=== PATIENT | female | born 1945 | race Caucasian/White ===

== ENCOUNTER 2025-01-27 06:25 | Inpatient (IN) ==
--- NOTE | 2025-01-11 14:36 | PAT Medication Instructions ---
Medication Instructions Date of Service January 11, 2025 Home Medications acetaminophen 500 mg tablet 1,000 mg PO HS PRN prn buspirone 5 mg tablet 5 mg PO BID calcium 600 mg (as carbonate)-vitamin D3 5 mcg (200 unit) tablet 2 tab PO QAM cholecalciferol (vitamin D3) 125 mcg (5,000 unit) tablet (Vitamin D3) 125 mcg PO QAM cyanocobalamin (vitamin B-12) 1,000 mcg tablet (Vitamin B-12) 1,000 mcg PO QAM ezetimibe 10 mg tablet (Zetia) 10 mg PO QAM fluticasone propionate 50 mcg/actuation nasal spray,suspension 2 spray intranasal DAILY PRN prn latanoprost (PF) 0.005 % eye drops 1 drp ophthalmic (eye) PM lisinopril 20 mg tablet 20 mg PO QAM metoprolol succinate 50 mg tablet,extended release 24 hr 50 mg PO QAM dnbkyyvngims-zhifqrfo-ceowojo-folic acid 400 mcg-vit K1 20 mcg tablet (Women's 50 Plus Advanced) 1 tab PO QAM paroxetine HCl 40 mg tablet 40 mg PO QAM polyethylene glycol 3350 17 gram/dose oral powder (Miralax) 17 g PO 2XWK PRN prn DO NOT take the morning of surgery calcium 600 mg (as carbonate)-vitamin D3 5 mcg (200 unit) tablet 2 tab PO QAM cholecalciferol (vitamin D3) 125 mcg (5,000 unit) tablet (Vitamin D3) 125 mcg PO QAM cyanocobalamin (vitamin B-12) 1,000 mcg tablet (Vitamin B-12) 1,000 mcg PO QAM lisinopril 20 mg tablet 20 mg PO QAM eryuzmdacplf-elyswoas-oqnwmhh-folic acid 400 mcg-vit K1 20 mcg tablet (Women's 50 Plus Advanced) 1 tab PO QAM polyethylene glycol 3350 17 gram/dose oral powder (Miralax) 17 g PO 2XWK PRN prn Take morning of surgery With a small sip of water, OTHERWISE NOTHING TO EAT OR DRINK AFTER MIDNIGHT: buspirone 5 mg tablet 5 mg PO BID ezetimibe 10 mg tablet (Zetia) 10 mg PO QAM fluticasone propionate 50 mcg/actuation nasal spray,suspension 2 spray intranasal DAILY PRN prn (if needed) metoprolol succinate 50 mg tablet,extended release 24 hr 50 mg PO QAM paroxetine HCl 40 mg tablet 40 mg PO QAM Take evening before surgery acetaminophen 500 mg tablet 1,000 mg PO HS PRN prn .ig buspirone 5 mg tablet 5 mg PO BID fluticasone propionate 50 mcg/actuation nasal spray,suspension 2 spray intranasal DAILY PRN prn (if needed) latanoprost (PF) 0.005 % eye drops 1 drp ophthalmic (eye) PM polyethylene glycol 3350 17 gram/dose oral powder (Miralax) 17 g PO 2XWK PRN prn (if needed) Other Notes If you have any questions please call us at [phone] or [phone] or [phone] or [phone]
--- NOTE | 2025-01-14 12:23 | Anesthesiology Consultation ---
Date of Service January 14, 2025 Assessment & Plan (1) Encounter for pre-operative examination: - awaiting surgeon ordered 01/18/25 medical clearance, Dr. Andre Allen [facility] [address]. Chart Review Chart Review: Pending: Refer to Additional Notes / Consult section and Patient seen in Pre Admission Testing Teaching & Discussion Pre-Anesthesia Teaching/Discussion Notes: Instructed NPO after midnight before surgery, except medications with 15 cc of water. Medication instructions provided according to the PAT guidelines. History Surgery Operation Date: 01/27/25 07:45 Proposed Procedures p T12-L2 Decompression and Fusion, Possible Hardware Removal, Spinal Cord Monitoring - Chivo Roberts, Height/Weight Height: 5 ft 3 in Weight: 84.8 kg Allergies Allergy/AdvReac Type Severity Reaction Status Date / Time Iwfrqnq-JAG-BsR Reductase Allergy Unknown myalgias Verified 01/14/25 12:19 Inhibitor [Mfpzvrg-Oob-Yhr Reductase Inhibitor] lorazepam AdvReac Mild "spacey" Verified 01/14/25 12:19 Unclassified Drugs Allergy Unknown 'BRIAN Uncoded 01/14/25 12:19 DRUG WITH DENTAL WORK-HYPOTENSION,FLUSHED, NAUSEA Medications Home Medications Medication Instructions Recorded Confirmed Last Taken acetaminophen 500 mg tablet 1,000 mg PO HS PRN prn 01/07/25 01/07/25 Unknown buspirone 5 mg tablet 5 mg PO BID 01/07/25 01/07/25 Unknown calcium 600 mg (as 2 tab PO QAM 01/07/25 01/07/25 Unknown carbonate)-vitamin D3 5 mcg (200 unit) tablet cholecalciferol (vitamin D3) 125 125 mcg PO QAM 01/07/25 01/07/25 Unknown mcg (5,000 unit) tablet (Vitamin D3) cyanocobalamin (vitamin B-12) 1,000 mcg PO QAM 01/07/25 01/07/25 Unknown 1,000 mcg tablet (Vitamin B-12) ezetimibe 10 mg tablet (Zetia) 10 mg PO QAM 01/07/25 01/07/25 Unknown fluticasone propionate 50 2 spray intranasal DAILY PRN prn 01/07/25 01/07/25 Unknown mcg/actuation nasal spray,suspension latanoprost (PF) 0.005 % eye drops 1 drp ophthalmic (eye) PM 01/07/25 01/07/25 Unknown lisinopril 20 mg tablet 20 mg PO QAM 01/07/25 01/07/25 Unknown metoprolol succinate 50 mg 50 mg PO QAM 01/07/25 01/07/25 Unknown tablet,extended release 24 hr cmdanrcafapd-swinjfxl-ytunmrk-folic 1 tab PO QAM 01/07/25 01/07/25 Unknown acid 400 mcg-vit K1 20 mcg tablet (Women's 50 Plus Advanced) paroxetine HCl 40 mg tablet 40 mg PO QAM 01/07/25 01/07/25 Unknown polyethylene glycol 3350 17 17 g PO 2XWK PRN prn 01/07/25 01/07/25 Unknown gram/dose oral powder (Miralax) Past Medical History Medical History (Updated 01/14/25 @ 12:35 by Елена Galarza PA-C) Anxiety Chronic kidney disease, stage 2 (mild) Depression Eye problem left eye-blurry vision-is to see Dr Calderon at [facility] History of anesthesia reaction difficulty waking as a teenager with tonsillectomy, no issues since Hyperlipidemia Hypertension controlled, stable per pt Migraine Osteoarthritis Patient denies h/o stroke, seizures, heart attack, heart failure, DM, blood clots/DVTs or blood transfusions. Exercise / Class Metabolic Activity II 4-5 Yardwork/Stairs/Walk up hill (ambulates with cane, denies chest d iscomfort or shortness of breath with one flight of stairs) Past Surgical History Surgical History History of adenoidectomy History of cataract surgery bilateral History of foot surgery left foot fracture, hardware present History of lumbar surgery History of partial hysterectomy History of tonsillectomy Past Anesthesia History No Family Hx of Anesthesia Complications and Other (slow to wake) History of PONV No Hx of PONV and No Hx of Motion Sickness Social History Smoking Status: Never smoker Do You Dip or Chew Tobacco: No Hx Alcohol Use: Yes Alcohol type: wine alcohol intake frequency: holidays/special occasions only Hx Substance Use: No substance use type: does not use Review of Systems Patient denies chest pain, shortness of breath, dyspnea on exertion, snoring, witnessed apneas, reflux, fever, chills, cough, wheezing, or palpitations. Physical Exam Vital Signs Vitals BP 135/81 P 68 TEMP 98.2 SP02 96% on RA RESP 19 Physical Patient resting comfortably in chair in no acute distress, alert and oriented, responding appropriately throughout visit Full cervical extension range of motion without pain TMD 3.5 finger breadths Mallampati Score 2 Dentition: several crowns and permanent partial front upper tooth; denies chipped or loose teeth, or bridges Lungs: normal respiratory effort. Good air movement, clear throughout to auscultation, no adventitious breath sounds Cardiac: regular rate and rhythm, no murmurs noted Carotid arteries: negative bruit bilat Testing Laboratory Results 01/08/25 WBC: 5.6 H/H: 13/38 PLATELETS: 213,000 SODIUM: 136 POTASSIUM: 4.5 CHLORIDE: 104 CO2: 29 BUN: 17 CREATININE: 0.8 GLUCOSE: 92 PT: 11.2 PTT: 35 INR: 0.9 UA: trace leukocyte esterase Electrocardiogram Date: 01/08/25 Sinus bradycardia, rate 59 bpm Chest X-Ray Date: 01/12/25 Ribs with PA chest left No evidence of acute osseous abnormality 01/08/25 Mild pulmonary hyperinflation. There is no pulmonary congestion, consolidation or focal infiltrate Possible lucent abnormality involving the lateral left fourth rib. Correlation with left rib series is recommended
[2025-01-27] MEDS: LR 15ML/HR IV SCH (06:40)
[2025-01-27] MEDS ORDERED: ePHEDrine sulfate 50 MG/ML AMP IV PRN (06:46)
[2025-01-27] MEDS ORDERED: HYDROmorphone INJ 1 MG/ML SYRINGE IV PRN ×2 (06:46→11:47)
[2025-01-27] MEDS ORDERED: ATROPINE SULFATE 0.1 MG/ML 10ML SYR IV PRN (06:46)
[2025-01-27] MEDS ORDERED: ONDANSETRON INJ 2 MG/ML 2 ML VIAL IV PRN ×2 (06:46→11:47)
[2025-01-27] MEDS: ACETAMINOPHEN 500 MG TAB PO SCH (07:02)
[2025-01-27] MEDS: GABAPENTIN 300 MG CAP PO SCH (07:02)
[2025-01-27] MEDS: CeleBREX 200 MG CAP PO SCH (07:02)
[2025-01-27] MEDS ORDERED: ONDANSETRON INJ 2 MG/ML 2 ML VIAL ONE ×2 (07:05→09:48)
[2025-01-27] MEDS ORDERED: DEXAMETHASONE SOD INJ 4 MG/ML VIAL ONE (07:05)
[2025-01-27] MEDS ORDERED: LIDOCAINE 2% 2 ML VIAL/AMP(20MG/ML) INFIL ONE (07:05)
[2025-01-27] MEDS ORDERED: PROPOFOL IV EMULSION 10 MG/ML 20 ML VIAL IV ONE (07:05)
[2025-01-27] MEDS ORDERED: ROCURONIUM BROMIDE 10 MG/ML 5 ML VIAL IV ONE (07:06)
[2025-01-27] MEDS ORDERED: SODIUM CHLORIDE 0.9% PF INJ 10 ML VIAL ONE (07:06)
[2025-01-27] MEDS ORDERED: HYDROmorphone INJ 2 MG/ML SYR/VIAL ONE (07:06)
--- NOTE | 2025-01-27 07:41 | History & Physical Bridge Note ---
Date of Service January 27, 2025 History & Physical Bridge Note I have examined the patient, reviewed the History & Physical and in the interval since the performance of the History & Physical I have noted the following changes of clinical significance: no changes noted
--- NOTE | 2025-01-27 07:42 | History & Physical Report ---
Date of Service January 27, 2025 Assessment & Plan (1) Two-level lumbosacral spondylosis with radiculopathy: Plan: T12-L2 decompression and fusion, possible hardware removal History of Present Illness Chief Complaint: Back and leg pain Primary Care Provider: Andre Allen DO This is an 79-year-old female who presents for chronic persistent back and leg pain a failed course of nonoperative care is here for surgical invention. Allergies Allergy/AdvReac Type Severity Reaction Status Date / Time Uyjbfon-BLK-XqI Reductase Allergy Unknown myalgias Verified 01/27/25 06:30 Inhibitor [Owmgadj-Ofg-Xfr Reductase Inhibitor] lorazepam AdvReac Mild "spacey" Verified 01/27/25 06:30 Unclassified Drugs Allergy Unknown 'BRIAN Uncoded 01/27/25 06:30 DRUG WITH DENTAL WORK-HYPOTENSION,FLUSHED, NAUSEA Home Medications Medication Instructions Recorded Confirmed Type acetaminophen 500 mg tablet 1,000 mg PO HS PRN prn 01/07/25 01/27/25 History buspirone 5 mg tablet 5 mg PO BID 01/07/25 01/27/25 History calcium 600 mg (as 2 tab PO QAM 01/07/25 01/27/25 History carbonate)-vitamin D3 5 mcg (200 unit) tablet cholecalciferol (vitamin D3) 125 125 mcg PO QAM 01/07/25 01/27/25 History mcg (5,000 unit) tablet (Vitamin D3) cyanocobalamin (vitamin B-12) 1,000 mcg PO QAM 01/07/25 01/27/25 History 1,000 mcg tablet (Vitamin B-12) ezetimibe 10 mg tablet (Zetia) 10 mg PO QAM 01/07/25 01/27/25 History fluticasone propionate 50 2 spray intranasal DAILY PRN prn 01/07/25 01/27/25 History mcg/actuation nasal spray,suspension latanoprost (PF) 0.005 % eye drops 1 drp ophthalmic (eye) PM 01/07/25 01/27/25 History lisinopril 20 mg tablet 20 mg PO QAM 01/07/25 01/27/25 History metoprolol succinate 50 mg 50 mg PO QAM 01/07/25 01/27/25 History tablet,extended release 24 hr jqfpkpyufswg-gfbnwvyi-uqipxlp-folic 1 tab PO QAM 01/07/25 01/27/25 History acid 400 mcg-vit K1 20 mcg tablet (Women's 50 Plus Advanced) paroxetine HCl 40 mg tablet 40 mg PO QAM 01/07/25 01/27/25 History polyethylene glycol 3350 17 17 g PO 2XWK PRN prn 01/07/25 01/27/25 History gram/dose oral powder (Miralax) Past Med/Surg History Problem List (Updated 01/27/25 @ 07:42 by Chivo Roberts DO) Two-level lumbosacral spondylosis with radiculopathy Encounter for pre-operative examination Medical History (Updated 01/27/25 @ 07:42 by Chivo Roberts DO) Hyperlipidemia Osteoarthritis History of anesthesia reaction difficulty waking as a teenager with tonsillectomy, no issues since Chronic kidney disease, stage 2 (mild) Eye problem left eye-blurry vision-is to see Dr Calderon at [facility] Depression Migraine Anxiety Hypertension controlled, stable per pt Surgical History History of foot surgery left foot fracture, hardware present History of lumbar surgery History of partial hysterectomy History of adenoidectomy History of tonsillectomy History of cataract surgery bilateral Social History Smoking Status: Never smoker Second Hand Exposure: No; Do You Dip or Chew Tobacco: No; Tobacco Cessation Education Requested by Patient: No Hx Alcohol Use: Yes Alcohol type: wine Hx Substance Use: No Preferred Language: Canadian Nut Grinder Required: No Beliefs That Will Affect Care: None Current Living Situation: Spouse Other Information That Helps Us Care for You: No Feels Safe at Home: Yes Safety Concerns: Feels Safe At This Time Assistive Devices: Cane and Glasses Physical Exam Physical Exam: Patient is alert and oriented heart regular rhythm Lungs clear Results & Data Results & Data Vital Signs (Past 12 Hours) Vital Signs Temp Pulse Resp BP Pulse Ox O2 Del Method 01/27/25 06:44 36.7 C 66 20 164/90 H 97 Room Air
[2025-01-27] MEDS: ceFAZolin 2000MG 2,000 MG/15 ML SYR IV SCH ×2 (07:51→16:01)
[2025-01-27] MEDS: BUPIVACAINE/EPINEPHRINE 0.25% 1:200,000 30 ML VIAL ONE (08:19)
[2025-01-27] MEDS: ceFAZolin 330 MG/ML 1 GM VIAL ONE (08:19)
[2025-01-27] MEDS ORDERED: SUGAMMADEX SODIUM 200 MG/2 ML VIAL IV ONE (08:40)
[2025-01-27] MEDS ORDERED: ePHEDrine sulfate 50 MG/5 ML SYR ONE (09:02)
[2025-01-27] MEDS ORDERED: PROPOFOL IV EMULSION 10 MG/ML 100 ML VIAL IV ONE ×2 (09:14)
[2025-01-27] MEDS ORDERED: ALBUMIN HUMAN 5% 12.5 GM/250 ML VIAL IV ONE (09:32)
[2025-01-27] MEDS: FLOSEAL HEMOSTATIC MATRIX 10ML TOP ONE (09:53)
--- NOTE | 2025-01-27 09:57 | Operative Report ---
Post Operative Report Pre & Post Diagnosis Operation Date: 01/27/25 07:45 Pre-Op Diagnosis: #1 two-level Lumbosacral Spondylosis with Radiculopathy #2 lumbar spinal stenosis Post-Op Diagnosis: Same I identified the patient and participated in the time-out.: Yes Procedure Operation Date: 01/27/25 07:45 Actual Procedures #1 lumbar decompression bilateral medial facetectomies and foraminotomies L1-L2 L2-L3. #2 posterior spinal fusion T12-L3. #3 placed posterior instrumentation T12-L2 with connectors of L3-L4. #4 interbody fusion L1-L2 L2-L3. #5 placement Spira 8 x 22 mm filled with os design at L1-L2 and 8 x 22 mm at L2-L3. #6 placement locally harvested morselized autograft posterior gutters. #7 placement infuse collagen sponge combined with Koros in the posterior lateral gutters #8 application of versa wrap over the exposed dura. Surgeon Chivo Roberts, Qualitative Researcher Rosio Carlos Estimated Blood Loss 400 Findings Consistent with Post-Op Diagnosis Specimens None Indications This is a 79-year-old female who presents publish diagnosis of failing course of nonoperative care is here for surgical intervention. Description of Procedure Patient is met with identified informed consent obtained. Patient was then taken operative suite underwent the patient placed in a prone position the Krystian table on top of the Kayden frame. All bony prominences well-padded eyes inspected to ensure no external pressure placed upon them. This point the thoracolumbar spine was prepped and draped no sterile fashion. Sharp dissection with the assistance of Bovie cautery form down. Exposing the lamina and transverse processes of T12 L1-L2 and the instrumentation at L2-L3. Then proceeded to perform a complete laminectomy of L2 including bilateral medial facetectomies and foraminotomies addressing severe neural compression followed by complete laminectomy of L1 with bilateral male facetectomies and foraminotomies addressing severe neural compression. Pedicle screws were then placed in T12 L1-L2 bilaterally with assistance of fluoroscopy and connectors attached to the L2-L3 jason[address] By way of transforaminal approach on the right a complete discectomy at L2-L3 was performed endplates guided to subcortical bleeding bone and 8 x 22 mm spiral cage filled with os design bone graft tapped position. Then proceeded to L1-L2 and bilateral transforaminal approach on the right complete discectomy was performed endplates guided to subcortical mean bone and 8 x 22 mm Spira cage filled with os design bone graft tapped in position. Proper size jason was then contoured and placed and locked into position bilaterally. The transverse processes of T12 L1-L2-L3 burred to subc ortical bleeding bone. Infuse collagen sponge, with Koros and local autograft placed in the posterior gutters. Versa wrap placed over exposed dura. 15 round DARRELL drain inserted. The incision was then closed with 1 Vicryl fascia 2-0 Vicryl subcutaneously and 4 Monocryl for final skin closure. Steri-Strips sterile dressing placed. Patient waken taken to PACU stable condition. Please note spinal cord monitoring was utilized no changes noted. Rosio Carlos was present at the entire surgery and while the patient positioning complex portion of the surgery and final skin closure. I attest to the content of the Intraoperative Record and any orders documented therein. Any exceptions are noted below.
--- NOTE | 2025-01-27 10:37 | Fluoroscopy Report ---
FL lumbar spine 2-3V CLINICAL HISTORY: T12-L2 DECOMPRESSION AND FUSION COMPARISON STUDY: None FLUOROSCOPY TIME: 36 seconds FLUOROSCOPY IMAGES: 3 EXPOSURE DOSE: 21 mGy FINDINGS: Fluoroscopy was provided for T12-L2 decompression and metallic fusion. IMPRESSION: Intraoperative fluoroscopy. ACT 112: Negative or not required by law. Electronically signed by: Ventura Pacheco M.D. 01/27/2025 10:35 AM
[2025-01-27] MEDS: fentaNYL citrate PF 100 MCG/2 ML VIAL IV PRN (11:02)
[2025-01-27] MEDS ORDERED: hydrOXYzine HCl 25 MG TAB PO PRN (11:47)
[2025-01-27] MEDS ORDERED: HYDROmorphone INJ 0.5 MG/0.5 ML SYR IV PRN (11:47)
[2025-01-27] MEDS ORDERED: SOD PHOSPHATE/SOD BIPHOSPHATE ENEMA 132 ML BTL PR PRN (11:47)
[2025-01-27] MEDS ORDERED: diphenhydrAMINE Capsule 25 MG CAP PO PRN (11:47)
[2025-01-27] MEDS ORDERED: ONDANSETRON 4 MG OD TAB PO PRN (11:47)
[2025-01-27] MEDS ORDERED: DO NOT ADMINISTER PNEUMOCOCCAL VACCINE PRN (11:47)
[2025-01-27] MEDS ORDERED: METOCLOPRAMIDE HCL INJ 5 MG/ML 2 ML VIAL IV PRN (11:47)
[2025-01-27] MEDS ORDERED: NALOXONE HCL 0.4 MG/1 ML VIAL/CARP IV PRN (11:47)
[2025-01-27] MEDS ORDERED: FLUTICASONE PROPIONATE NA SPR 16 GM BTL PRN (11:47)
[2025-01-27] MEDS ORDERED: MAGNESIUM HYDROXIDE SUSP 30 ML UDC PO PRN (11:47)
[2025-01-27] MEDS ORDERED: PROMETHAZINE 12.5 MG/50.5 ML BAG IV PRN (11:47)
[2025-01-27] MEDS ORDERED: DO NOT ADMINISTER FLU VACCINE PRN (11:47)
[2025-01-27] MEDS ORDERED: bisacodyL 10 MG SUPP PR PRN (11:47)
--- NOTE | 2025-01-27 12:17 | Anesthesiology Progress Note ---
Date of Service January 27, 2025 Anesthesia Post Procedure Vital Signs Vital Signs: Temp Pulse Pulse Resp BP Pulse Ox O2 Del Method 01/27/25 12:07 36.5 C 67 18 124/68 97 Nasal Cannula 01/27/25 11:57 Nasal Cannula 01/27/25 11:41 36.3 C L 70 16 115/68 98 Nasal Cannula 01/27/25 11:20 36.5 C 70 12 119/59 L 96 Nasal Cannula 01/27/25 11:10 74 12 138/59 L 96 Nasal Cannula 01/27/25 11:00 74 12 135/74 95 Oxymask 01/27/25 10:50 84 14 129/68 98 Oxymask 01/27/25 10:40 74 12 137/71 98 Oxymask 01/27/25 10:30 76 12 146/74 H 97 Oxymask 01/27/25 10:19 36.5 C 80 20 136/88 97 Oxymask 01/27/25 06:44 36.7 C 66 20 164/90 H 97 Room Air O2 Flow Rate 01/27/25 12:07 2.0 01/27/25 11:57 3 01/27/25 11:41 3 01/27/25 11:20 2 01/27/25 11:10 2 01/27/25 11:00 3 01/27/25 10:50 3 01/27/25 10:40 5 01/27/25 10:30 10 01/27/25 10:19 10 01/27/25 06:44 Pain Intensity Back: Pain Intensity: 5 Transfer of Care Handoff Completed per policy Notes Mental Status: alert / awake / arousable and participated in evaluation Patient Amnestic to Procedure: Yes Nausea / Vomiting: adequately controlled Pain: adequately controlled Airway Patency, RR, SpO2: stable & adequate BP & HR: stable & adequate Hydration State: stable & adequate Anesthetic Complications: no major complications apparent and Pt Satisfied with anesthetic care
[2025-01-27] MEDS: LR 60ML/HR IV SCH (12:23)
[2025-01-27] MEDS: oxyCODONE HCL IR 5 MG TAB (IMMEDIATE RELEASE) PO PRN (14:03)
[2025-01-27] MEDS: traMADol HCL 50 MG TABLET PO PRN (16:00)
--- NOTE | 2025-01-27 16:16 | Hospitalist Consultation ---
Date of Consultation January 27, 2025 Assessment & Plan (1) Hypertension: (2) Depression: Plan Renae is an 79 F with a PMhx uterine cancer (status post hysterectomy) GERD CKD, depression/anxiety, coronary artery disease, and hypertension who presents for elective back surgery with Dr. Roberts. #hypertension/ CAD Continue metoprolol and zetia. Hold lisinopril pending a.m. labs #Mental health continue BuSpar and Paxil #Status post back surgery T12/L2 decompression and fusion with Dr. Roberts 01/27 Pain control/DVT prophylaxis/antibiotics/discharge planning per primary team EBL: 400, monitor CBC with AM labs Thank you for allowing us to participate in the care of this patient, please reach out with any questions or concerns. medicine will continue to follow Supervising Physician Co-Signing Physician Notes Patient seen and examined, chart reviewed, case discussed with Dulce Thomas PA-C and I agree with the assessment and plan as above except as otherwise noted Labs and images reviewed Nondistressed at bedside, reports she feels well but tired and would like to take a nap. Otherwise no acute concerns. History of Present Illness Reason for Consultation: medical management ` Requesting Physician: Dr. Roberts Attending Physician: Chivo Roberts, DO History of Present Illness Renae is an 79 F with a PMhx uterine cancer (status post hysterectomy) GERD CKD, depression/anxiety, coronary artery disease, and hypertension who presents for elective back surgery with Dr. Roberts. Patient seen postoperatively, with present at bedside. States that she is feeling well, usually is pretty groggy after anesthesia. Is not hungry, denies nausea. Asked for something to drink as provided a sip of water. Does not use a CPAP machine at home. Feeling relieved as she was able to get comfortable laying on her side Allergies Allergy/AdvReac Type Severity Reaction Status Date / Time Rzfojwr-IOE-ZcV Reductase Allergy Unknown myalgias Verified 01/27/25 06:30 Inhibitor [Xnvnpco-Ejo-Xsp Reductase Inhibitor] articaine Allergy 'BRIAN Verified 01/27/25 12:08 DRUG WITH DENTAL WORK-HYPOTENSION,FLUSHED, NAUSEA procaine [From Novocain] Allergy 'BRIAN Verified 01/27/25 12:08 DRUG WITH DENTAL WORK-HYPOTENSION,FLUSHED, NAUSEA lorazepam AdvReac Mild "spacey" Verified 01/27/25 06:30 Home Medications Medication Instructions Recorded Confirmed Type acetaminophen 500 mg tablet 1,000 mg PO HS PRN prn 01/07/25 01/27/25 History buspirone 5 mg tablet 5 mg PO BID 01/07/25 01/27/25 History calcium 600 mg (as 2 tab PO QAM 01/07/25 01/27/25 History carbonate)-vitamin D3 5 mcg (200 unit) tablet cholecalciferol (vitamin D3) 125 125 mcg PO QAM 01/07/25 01/27/25 History mcg (5,000 unit) tablet (Vitamin D3) cyanocobalamin (vitamin B-12) 1,000 mcg PO QAM 01/07/25 01/27/25 History 1,000 mcg tablet (Vitamin B-12) ezetimibe 10 mg tablet (Zetia) 10 mg PO QAM 01/07/25 01/27/25 History fluticasone propionate 50 2 spray intranasal DAILY PRN prn 01/07/25 01/27/25 History mcg/actuation nasal spray,suspension latanoprost (PF) 0.005 % eye drops 1 drp ophthalmic (eye) PM 01/07/25 01/27/25 History lisinopril 20 mg tablet 20 mg PO QAM 01/07/25 01/27/25 History metoprolol succinate 50 mg 50 mg PO QAM 01/07/25 01/27/25 History tablet,extended release 24 hr dqbnxlkbsagv-zwfihrdo-qjlciic-folic 1 tab PO QAM 01/07/25 01/27/25 History acid 400 mcg-vit K1 20 mcg tablet (Women's 50 Plus Advanced) paroxetine HCl 40 mg tablet 40 mg PO QAM 01/07/25 01/27/25 History polyethylene glycol 3350 17 17 g PO 2XWK PRN prn 01/07/25 01/27/25 History gram/dose oral powder (Miralax) oxycodone 5 mg tablet 5 mg PO Q6H PRN pain #30 tabs 01/27/25 Rx tramadol 50 mg tablet 50 mg PO Q6H PRN pain, moderate 01/27/25 Rx #30 tabs Patient History Medical History (Updated 01/27/25 @ 07:42 by Chivo Roberts DO) Hyperlipidemia Osteoarthritis History of anesthesia reaction difficulty waking as a teenager with tonsillectomy, no issues since Chronic kidney disease, stage 2 (mild) Eye problem left eye-blurry vision-is to see Dr Calderon at [facility] Depression Migraine Anxiety Hypertension controlled, stable per pt Surgical History History of foot surgery left foot fracture, hardware present History of lumbar surgery History of partial hysterectomy History of adenoidectomy History of tonsillectomy History of cataract surgery bilateral Social History Smoking Status: Never smoker Second Hand Exposure: No; Do You Dip or Chew Tobacco: No; Tobacco Cessation Education Requested by Patient: No Hx Alcohol Use: Yes Alcohol type: wine Hx Substance Use: No Preferred Language: Czech Electrical Wiring Lineman Required: No Beliefs That Will Affect Care: None Current Living Situation: Spouse Other Information That Helps Us Care for You: No Feels Safe at Home: Yes Safety Concerns: Feels Safe At This Time Assistive Devices: Cane and Glasses Review of Systems Review of Systems: All systems reviewed & are unremarkable except as noted in Subjective Physical Exam Physical Exam: General: NAD, VS as above, lying in bed appears tired Resp: normal respiratory effort, lungs clear to auscultation, weaned off of oxygen during my encounter CV: RRR, no murmur, Abd: normal bowel sounds, non tender, soft Back: Dressing clean dry and intact, DARRELL drain in place Extremities: Moves all extremities, DYLON hose and SCDs in place able to wiggle toes bilaterally Neuro: A&O x3, Results & Data Results & Data Vital Signs (Past 12 Hours) Vital Signs Temp Pulse Pulse Resp BP Pulse Ox O2 Del Method 01/27/25 15:41 98.1 F 69 18 113/72 95 Room Air 01/27/25 15:03 75 117/78 01/27/25 14:39 98.2 F 70 18 117/61 93 Room Air 01/27/25 13:41 97.3 F L 71 16 110/64 95 Room Air 01/27/25 12:40 98.1 F 65 18 100/56 L 92 Nasal Cannula 01/27/25 12:07 97.7 F 67 18 124/68 97 Nasal Cannula 01/27/25 11:57 Nasal Cannula 01/27/25 11:41 97.3 F L 70 16 115/68 98 Nasal Cannula 01/27/25 11:20 97.7 F 70 12 119/59 L 96 Nasal Cannula 01/27/25 11:10 74 12 138/59 L 96 Nasal Cannula 01/27/25 11:00 74 12 135/74 95 Oxymask 01/27/25 10:50 84 14 129/68 98 Oxymask 01/27/25 10:40 74 12 137/71 98 Oxymask 01/27/25 10:30 76 12 146/74 H 97 Oxymask 01/27/25 10:19 97.7 F 80 20 136/88 97 Oxymask 01/27/25 06:44 98.1 F 66 20 164/90 H 97 Room Air O2 Flow Rate 01/27/25 15:41 01/27/25 15:03 01/27/25 14:39 01/27/25 13:41 01/27/25 12:40 2.0 01/27/25 12:07 2.0 01/27/25 11:57 3 01/27/25 11:41 3 01/27/25 11:20 2 01/27/25 11:10 2 01/27/25 11:00 3 01/27/25 10:50 3 01/27/25 10:40 5 01/27/25 10:30 10 01/27/25 10:19 10 01/27/25 06:44 PG Care Time/CCT Total # of Minutes Spent Total Time Spent with Patient: Total time spent is greater than 50% in coordination of care (as documented) at patient's floor/unit and/or counseling patient: Coding Level of Care Code 50514 IN/OBS CONSULT LVL 3,45M Diagnoses Hypertension I10 Depression F32.A
[2025-01-27] MEDS: ACETAMINOPHEN 1,000 MG/100 ML VIAL IV PRN (18:10)
[2025-01-27] MEDS: DOCUSATE SODIUM/SENNA 50/8.6MG TAB PO SCH (20:20)
[2025-01-27] MEDS: busPIRone 5 MG TAB PO SCH (20:20)
[2025-01-27] MEDS: ALUMINUM/MAGNESIUM SUSP 30 ML UDC PO PRN (20:20)
[2025-01-27] MEDS: LATANOPROST 0.005% OP SOLN 2.5 ML BTL OP SCH (21:07)
[2025-01-27] MEDS: FAMOTIDINE 20 MG TAB PO PRN (23:15)
[2025-01-28] MEDS: POLYETHYLENE (MIRALAX) 17 GM PACK PO SCH (05:13)
[2025-01-28 06:21] LABS: Basophils # (auto) 0.01 K/uL (0.00-0.20); Basophils % (auto) 0.1 %; Hematocrit (blood only) 27.2 % (37.0-47.0); Hemoglobin 9.3 g/dl (12.0-16.0); Immature Granulocytes # (auto) 0.02 K/uL (0.01-0.20); Immature Granulocytes % (auto) 0.2 %; Lymphocytes # (auto) 1.88 K/uL (1.20-3.40); Lymphocytes % (auto) 22.1 %; Mean Corpuscular Hemoglobin 31.7 pg (25.0-34.0); Mean Corpuscular Hgb Conc 34.2 g/dL (32.0-36.0); Mean Corpuscular Volume 92.8 fL (80.0-100.0); Monocytes # (auto) 0.88 K/uL (0.11-0.59); Monocytes % (auto) 10.3 %; Neutrophils # (auto) 5.72 K/uL (1.40-6.50); Neutrophils % (auto) 67.3 %; Platelet Count 164 K/uL (130-400); RDW Coefficient of Variation 12.2 % (11.5-14.5); RDW Standard Deviation 41.8 fL (36.4-46.3); Red Blood Count 2.93 M/uL (4.20-5.40); White Blood Count 8.51 K/ul (4.8-10.8)
[2025-01-28 06:39] LABS: BUN Creatinine Ratio 20.2 (10-20); Creatinine Clr Calc Pharmacy 54.7 ml/min; Potassium 4.3 mmol/L (3.5-5.1)
[2025-01-28] MEDS: CEROVITE ADV FORMULA TAB PO SCH (08:15)
[2025-01-28] MEDS: dexAMETHasone 6 MG in SYRINGE 0 ML IV SCH (08:15)
[2025-01-28] MEDS: EZETIMIBE 10 MG TAB PO SCH (08:16)
[2025-01-28] MEDS: METOPROLOL SUCC 50MG EXT REL TAB PO SCH (08:16)
[2025-01-28] MEDS: CYANOCOBALAMIN (B-12) 500 MCG TABLET PO SCH (08:16)
[2025-01-28] MEDS: CALCIUM 600MG + VIT D 400 IU TAB PO SCH (08:16)
[2025-01-28] MEDS: CHOLECALCIFEROL 125 MCG (5,000 UNITS) TAB PO SCH (08:17)
[2025-01-28] MEDS: PARoxetine HCL 20 MG TAB PO SCH (08:17)
--- NOTE | 2025-01-28 08:26 | Orthopedic Progress Note ---
Date of Service January 28, 2025 Assessment & Plan (1) Two-level lumbosacral spondylosis with radiculopathy: Plan: Renae is postoperative day 1 status post T11-L2 decompression and fusion. She will start physical therapy today. DVT prophylaxis is in the form of teds and SCDs. Continue with aggressive bowel regimen. Continue with pain control. Maintain DARRELL drain. Anticipate discharge home over the weekend. Admission and Anticipated Discharge Date Admission Date: January 27, 2025 Subjective Renae is postoperative day 1 status post T11- L2 decompression and fusion. She had an uneventful evening. H&H is 20 or 9.3 and 27.2 respectively. DARRELL drain output last shift is 90 cc. No other complaints. Review of Systems Review of Systems: All systems reviewed & are unremarkable except as noted in HPI & below Physical Exam Physical Exam: She is laying in bed in no acute distress Alert and oriented x 3 lumbar dressing is clean dry and intact with functioning DARRELL drain strength intact bilateral lower extremities calf soft nontender bilaterally Results & Data Vital Signs (Past 12 Hours) Vital Signs Temp Pulse Resp BP Pulse Ox O2 Del Method 01/28/25 07:25 36.8 C 69 16 114/61 95 Room Air 01/28/25 03:17 36.8 C 76 18 117/69 95 Room Air 01/27/25 23:29 37.3 C 68 18 124/66 96 Room Air
[2025-01-28] MEDS: lisinopril 20 MG TAB PO SCH (10:27)
--- NOTE | 2025-01-28 11:24 | Hospitalist Progress Note ---
Date of Service January 28, 2025 Assessment & Plan (1) Hypertension: (2) Depression: Plan Renae is an 79 F with a PMhx uterine cancer (status post hysterectomy) GERD CKD, depression/anxiety, coronary artery disease, and hypertension who presents for elective back surgery with Dr. Roberts. #hypertension/ CAD Continue metoprolol and zetia. Creatinine stable okay to resume lisinopril #Mental health continue BuSpar and Paxil #Status post back surgery T12/L2 decompression and fusion with Dr. Roberts 01/27 Pain control/DVT prophylaxis/antibiotics/discharge planning per primary team EBL: 400 - hemoglobin 9.3 postoperatively, baseline unclear as no prior data available. Possible component of acute blood loss anemia #hyponatremia [id number] postoperatively. No prior for comparison. asymptomatic Consider repeat in 1 week if this is far from patient's baseline, or sooner with any mental status changes Thank you for allowing us to participate in the care of this patient, please reach out with any questions or concerns. Medicine will follow peripherally to ensure sodium stability. Admission and Anticipated Discharge Date Admission Date: January 27, 2025 Supervising Physician Co-Signing Physician Notes Attending Attestation - Chart reviewed, care plan d/w DICKSON Thomas. I agree w/ the rey components of her consultation documentation. Hyponatremia - repeat BMP in am. Consider serum/urine osm, urine Na. ?SIADH from chronic paxil use? Shukri Madsen MD Subjective Patient seen sitting up in the chair, daughter present at bedside. Reports that she is feeling well. Some soreness in her back but was able to ambulate with therapy this morning. Having some reflux symptoms that she was having prior to arrival has seen her PCP for this and was started on a medication They were recommending EGD outpatient and she thinks that she is going to pursue this Review of Systems Review of Systems: All systems reviewed & are unremarkable except as noted in Subjective Physical Exam Physical Exam: General: NAD, VS as above, sitting up in the chair, appears well Resp: normal respiratory effort, lungs clear to auscultation, CV: RRR, no murmur, Abd: normal bowel sounds, non tender, soft Back: Dressing clean dry and intact, DARRELL drain in place- minimal output Extremities: Moves all extremities, Neuro: A&O x3, Results & Data Results & Data Vital Signs (Past 12 Hours) Vital Signs Temp Pulse Resp BP Pulse Ox O2 Del Method 01/28/25 10:24 114/66 01/28/25 07:25 98.2 F 69 16 114/61 95 Room Air 01/28/25 03:17 98.2 F 76 18 117/69 95 Room Air 01/27/25 23:29 99.1 F 68 18 124/66 96 Room Air Laboratory Results CBC and chemistry reviewed PG Care Time/CCT Total # of Minutes Spent Total Time Spent with Patient: Total time spent is greater than 50% in coordination of care (as documented) at patient's floor/unit and/or counseling patient: Coding Level of Care Code 41136 SUB INP/OBS CARE 2/35MIN Diagnoses Hypertension I10 Depression F32.A
[2025-01-28] MEDS: ACETAMINOPHEN 500 MG TAB PO PRN (19:52)
[2025-01-29 06:59] LABS: BUN Creatinine Ratio 23.8 (10-20); Calcium 8.6 mg/dl (8.6-10.3); Creatinine Clr Calc Pharmacy 57.4 ml/min; Potassium 4.2 mmol/L (3.5-5.1)
--- NOTE | 2025-01-29 09:51 | Orthopedic Progress Note ---
Date of Service January 29, 2025 Assessment & Plan (1) Two-level lumbosacral spondylosis with radiculopathy: Plan: At this time we will continue physical therapy monitor her DARRELL output anticipate discharge home tomorrow. Admission and Anticipated Discharge Date Admission Date: January 27, 2025 Subjective Back pain controlled leg pain improved Physical Exam Physical Exam: Patient is very comfortable. Extra strength testing. Results & Data Vital Signs (Past 12 Hours) Vital Signs Temp Pulse Resp BP Pulse Ox O2 Del Method 01/29/25 07:30 36.7 C 64 17 132/72 98 Room Air Queries Orthopedic Spine Obesity: Yes
--- NOTE | 2025-01-29 12:23 | Communication Note ---
Date of Service: January 29, 2025 Sodium improving 132 today. Discussed with RN, independent in the room, no neuro changes. Hospitalist will sign off. Please reach out with any further que stions/concerns.
[2025-01-30 07:46] VITALS: PULSE 69; RESP 16; TEMP 98.2; O2SAT 97
--- NOTE | 2025-01-30 10:38 | Discharge Summary ---
Date of Service January 30, 2025 Admission HPI Per Admitting Provider This is an 79-year-old female who presents for chronic persistent back and leg pain a failed course of nonoperative care is here for surgical invention. Discharge Data Consultations 01/27/25 11:47 Consult Hospitalist Routine Procedures Performed Operation Date: 01/27/25 07:45 Actual Procedures p T12-L2 Decompression and Fusion, Spinal Cord Monitoring(Not Applicable) - Chivo Roberts DO [facility] Course (1) Two-level lumbosacral spondylosis with radiculopathy: Patient is a pleasant 79-year-old female with history physical examination with a graphic images consistent with the above-mentioned diagnosis. This reason she was brought to the operating room on 01/27/2025 and undergone a thoracolumbar decompression and extension of her fusion from T12-L2. This was performed by Dr Alfonso Roberts under general anesthesia. She left the operating room with a DARRELL drain and Chin in place and was transferred to PACU in stable condition. She was then transferred to the orthopedic floor. She is seen by physical therapy and Occupational Therapy postoperative day #1. Throughout her hospital course her abdomen remains supple and nontender calves remain supple and nontender she progressed well with physical therapy and was deemed safe for home discharge on postoperative day #3. Her discharge instructions were to change her dressing once daily till there is no drainage. Once there is no drainage she may begin showering. She should continue to walk for exercise but avoid full bending at the waist or excessive twisting. For follow-up care she was to see our office approximately 2 weeks out from surgery or sooner if she developed any increased drainage from the incision worsening pain weakness in the legs fevers or chills.
[2025-01-30 12:25] VITALS: BP 123/72
== END 2025-01-30 13:00 | disposition home or self-care (01) | DRG 427 ==
LOC: ASU 06:25 → 3E 10:04